=== PATIENT | female | born 1930 | race American Indian/Alaskan Native ===

== ENCOUNTER 2017-07-25 12:38 | Emergency (ER) | payer MEDICARE, OTHER ==
[2017-07-25 12:57] VITALS: BP 154/87
[2017-07-25] MEDS ORDERED: Sodium Chloride 0.9% 10 ML Syringe FLUSH PRN (13:41)
[2017-07-25 13:59] LABS: ANION GAP 13.4; CHLORIDE,CL 103 mmol/L (101-111); SODIUM,NA 138 mmol/L (135-145)
[2017-07-25] MEDS ORDERED: GI Cocktail Oral Solution 30 ML PO ONE (14:48)
--- NOTE | 2017-07-25 20:27 | EDM.PDOC ---
Scribed by Gaye Braga 07/25/17 1504 for Naomi Yeboah NP ED HPI GENERAL MEDICAL PROBLEM - General Chief Complaint: Chest Pain Stated Complaint: [id number] CHEST PAINS Time Seen by Provider: 07/25/17 13:35 Source of Information: Reports: Patient, RN, RN Notes Reviewed History Limitations: Reports: No Limitations - History of Present Illness INITIAL COMMENTS - FREE TEXT/NARRATIVE: Patient presents to ER with complaint of low blood sugar. She states she took glucose pill for elevated blood sugar, which gave her an upset stomach. Admits to chest pain and nausea. She denies any shortness of breath, vomiting, diarrhea , cough, fever or chills. She states the pain has decreased since arrival. Onset: Today Duration: Constant Location: Reports: Chest Quality: Reports: Ache Severity: Moderate Improves with: Reports: None Worsens with: Reports: None Associated Symptoms: Reports: No Other Symptoms Mid-Sternal Epigastric Pain Score (Numeric/FACES): 1 - Related Data Allergies Allergy/AdvReac Type Severity Reaction Status Date / Time atorvastatin calcium Allergy Swelling Verified 10/18/14 06:44 [From Lipitor] erythromycin lactobionate Allergy unknown Verified 10/18/14 06:44 [From Erythrocin] lisinopril Allergy Cough Verified 10/18/14 06:44 fluoroquinolones Allergy Swelling Uncoded 03/26/14 14:51 Home Meds: Home Meds Aspirin [Macey Chewable Aspirin] 81 mg PO DAILY 03/26/14 [History] Bumetanide [Bumex] 1 mg PO DAILY 03/26/14 [History] Fenofibric Acid (Choline) [Fenofibric Acid] 45 mg PO DAILY 03/26/14 [History] Ferrous Gluconate 325 mg PO DAILY 03/26/14 [History] Isosorbide Mononitrate [Isosorbide Mononitrate ER] 30 mg PO BID 03/26/14 [ History] Levothyroxine [Synthroid] 50 mcg PO DAILY 03/26/14 [History] Ranitidine HCl 150 mg PO BID PRN 03/26/14 [History] Sertraline HCl 50 mg PO DAILY 03/26/14 [History] amLODIPine [Norvasc] 5 mg PO DAILY 03/26/14 [History] Insulin Detemir [Levemir Flextouch] 10 units INJECT .EVENING 10/18/14 [History] Multivitamin [Multi-Vitamin Daily] 1 tab PO DAILY 10/18/14 [History] Social & Family History - Family History Family Medical History: Noncontributory - Tobacco Use Smoking Status *Q: Never Smoker Used Tobacco, but Quit: No Second Hand Smoke Exposure: No - Caffeine Use Caffeine Use: Reports: Soda, Tea - Alcohol Use Days Per Week of Alcohol Use: 0 - Recreational Drug Use Recreational Drug Use: No Drug Use in Last 12 Months: No - Living Situation & Occupation Living situation: Reports: with Family Occupation: Retired ED ROS GENERAL - Review of Systems Review Of Systems: ROS reveals no pertinent complaints other than HPI. ED EXAM, GENERAL - Physical Exam Exam: See Below Exam Limited By: No Limitations General Appearance: Alert, WD/WN, No Apparent Distress Eye Exam: Bilateral Eye: Normal Inspection Ears: Normal External Exam, Normal Canal, Hearing Grossly Normal, Normal TMs Nose: Normal Inspection, Normal Mucosa, No Blood Throat/Mouth: Normal Inspection, Normal Lips, Normal Teeth, Normal Gums, Normal Oropharynx, Normal Voice, No Airway Compromise Head: Atraumatic, Normocephalic Neck: Normal Inspection, Supple, Non-Tender, Full Range of Motion Respiratory/Chest: No Respiratory Distress, Lungs Clear, Normal Breath Sounds, No Accessory Muscle Use, Chest Non-Tender Cardiovascular: Normal Peripheral Pulses, Regular Rate, Rhythm, No Edema, No Gallop, No JVD, No Murmur, No Rub GI/Abdominal: Normal Bowel Sounds, Soft, Non-Tender, No Organomegaly, No Distention, No Abnormal Bruit, No Mass (Female) Exam: Deferred Rectal (Female) Exam: Deferred Back Exam: Normal Inspection, Full Range of Motion, NT Extremities: Normal Inspection, Normal Range of Motion, Non-Tender, Normal Capillary Refill, No Pedal Edema Neurological: Alert, Oriented, CN II-XII Intact, Normal Cognition, Normal Gait, Normal Reflexes, No Motor/Sensory Deficits Psychiatric: Normal Affect, Normal Mood Skin Exam: Warm, Dry, Intact, Normal Color, No Rash Lymphatic: No Adenopathy EKG INTERPRETATION EKG Date: 07/25/17 Time: 12:45 Rhythm: Other (sinus rhythm) Rate (Beats/Min): 77 EKG Interpretation Comments: Left axis deviation. LVH with secondary repolarization abnormality. Course - Vital Signs Last Recorded V/S: Last Vital Signs Temp 97.2 F 07/25/17 12:56 Pulse 78 07/25/17 12:56 Resp 22 H 07/25/17 12:56 BP 154/87 H 07/25/17 12:56 Pulse Ox 91 L 07/25/17 12:56 - Orders/Labs/Meds Orders: Active Orders 24 hr Category Date Time Status EKG Documentation Completion [RC] STAT Care 07/25/17 13:42 Active Peripheral IV Care [RC] . DIRECTED Care 07/25/17 13:42 Active Sodium Chloride 0.9% [Saline Flush] Med 07/25/17 13:41 Active 10 ml FLUSH ASDIRECTED PRN Peripheral IV Insertion Adult [OM.PC] Stat Oth 07/25/17 13:41 Ordered Medication Orders Sodium Chloride (Saline Flush) 10 ml FLUSH ASDIRECTED PRN PRN Reason: Keep Vein Open Last Admin: 07/25/17 13:49 Dose: 10 ml Labs: Laboratory Tests 07/25/17 07/25/17 Range/Units 12:52 12:52 WBC 11.7 H (5.0-10.0) 10^3/uL RBC 4.42 (4.2-5.4) 10^6/uL Hgb 13.7 (12.0-16.0) g/dL Hct 42.6 (37.0-47.0) % MCV 96.4 (80-100) fL MCH 31.0 (27.0-34.0) pg MCHC 32.2 L (33.0-35.0) g/dL Plt Count 226 (150-450) 10^3/uL Neut % (Auto) 79.6 H (42.2-75.2) % Lymph % (Auto) 14.4 L (20.5-50.1) % [place] % (Auto) 4.9 (2-8) % Eos % (Auto) 0.9 L (1.0-3.0) % Baso % (Auto) 0.2 (0.0-1.0) % Sodium 138 (135-145) mmol/L Potassium 4.4 (3.6-5.0) mmol/L Chloride 103 (101-111) mmol/L Carbon Dioxide 26.0 (21.0-31.0) mmol/L Anion Gap 13.4 BUN 16 (7-18) mg/dL Creatinine 0.9 (0.6-1.3) mg/dL Est Cr Clr Drug Dosing 39.63 mL/min Estimated GFR (MDRD) 59 BUN/Creatinine Ratio 17.77 Glucose 225 H (74-105) mg/dL Calcium 9.2 (8.4-10.2) mg/dl Total Bilirubin 0.7 (0.2-1.0) mg/dL AST 28 (10-42) IU/L ALT 17 (10-60) IU/L Alkaline Phosphatase 54 (42-121) IU/L Troponin I < 0.02 (0.00-0.02) ng/ml Total Protein 7.8 (6.7-8.2) g/dl Albumin 4.2 (3.2-5.5) g/dl Globulin 3.6 Albumin/Globulin Ratio 1.17 Meds: Medications Generic Name Dose Route Start Last Admin Trade Name Freq PRN Reason Stop Dose Admin Sodium Chloride 10 ml 07/25/17 13:41 07/25/17 13:49 Saline Flush FLUSH 10 ml ASDIRECTED PRN Administration Keep Vein Open Discontinued Medications Generic Name Dose Route Start Last Admin Trade Name Freq PRN Reason Stop Dose Admin Al Hydroxide/Mg Hydroxide 30 ml 07/25/17 14:48 07/25/17 14:58 Gi Cocktail PO 07/25/17 14:49 30 ml ONETIME ONE Administration Departure - Departure Time of Disposition: 15:02 Disposition: Home, Self-Care 01 Condition: Fair Clinical Impression: Acid reflux Qualifiers: Esophagitis presence: without esophagitis Qualified Code(s): K21.9 - Gastro- esophageal reflux disease without esophagitis Instructions: Nonspecific Chest Pain, Lbhk-[id number], Indigestion, Leir-rh-Nlpt, Heartburn, Abet-[id number] Forms: ED Department Discharge Additional Instructions: May use over the counter pepcid ac as directed for indigestion or heartburn as directed Follow up with your primary care facility Avoid spicy foods, caffeine, coffee, chocolate and other irritants. - My Orders Last 24 Hours: My Active Orders 07/25/17 13:41 Sodium Chloride 0.9% [Saline Flush] 10 ml FLUSH ASDIRECTED PRN Peripheral IV Insertion Adult [OM.PC] Stat 07/25/17 13:42 EKG Documentation Completion [RC] STAT Peripheral IV Care [RC] . DIRECTED - Assessment/Plan Last 24 Hours: My Active Orders 07/25/17 13:41 Sodium Chloride 0.9% [Saline Flush] 10 ml FLUSH ASDIRECTED PRN Peripheral IV Insertion Adult [OM.PC] Stat 07/25/17 13:42 EKG Documentation Completion [RC] STAT Peripheral IV Care [RC] . DIRECTED I have read and agree with the documentation that has been completed regarding this visit. By signing this record, I attest that the documentation was completed in my physical presence and is an accurate record of the encounter.
--- NOTE | 2017-07-27 13:13 | EKG ---
07/25/2017 - BASIA MCMANUS - FINDINGS: EKG per my reading shows sinus rhythm with LVH. [facility] /[id number]
== END 2017-07-25 15:19 | disposition home or self-care (01) ==
LOC: DL.ED 12:38
DX: K21.9 Gastro-esophageal reflux disease without esophagitis (principal); Z79.82 Long term (current) use of aspirin; Z79.899 Other long term (current) drug therapy; Z88.1 Allergy status to other antibiotic agents; Z88.8 Allergy status to other drugs, medicaments and biological substances
CPT/HCPCS: 36415; 80053; 84484; 85025; 93005; 93010; 99285; A9270; J7050; 99284

== ENCOUNTER 2019-06-17 14:20 | Emergency (ER) | payer MEDICARE, OTHER ==
[2019-06-17 14:08] VITALS: BP 146/69; PULSE 64
[2019-06-17 14:40] LABS: ANION GAP 13.6
[2019-06-17] MEDS ORDERED: Insulin Regular, Human 100 Units/ML 3 ML Vial IV ONE (14:57)
[2019-06-17] MEDS ORDERED: Insulin Regular, Human 100 Units/ML 3 ML Vial SUBCUT ONE ×2 (16:15→16:27)
--- NOTE | 2019-06-17 20:29 | EDM.PDOC ---
Scribed by Gaye Braga 06/17/19 1467 for Rupinder Palma NP ED HPI GENERAL MEDICAL PROBLEM - General Chief Complaint: General Stated Complaint: AMBULANCE Time Seen by Provider: 06/17/19 14:21 Source of Information: Reports: Patient, EMS, EMS Notes Reviewed, RN, RN Notes Reviewed History Limitations: Reports: No Limitations - History of Present Illness INITIAL COMMENTS - FREE TEXT/NARRATIVE: Patient presents to ER by [facility]. Patient does not know if her blood sugar is elevated. She is weak x 1 days. She has had decreased appetite. She has had no cough, fever, or urinary symptoms. No recent illness. She is on Levemir 22 units in the A.M. Her son gives her all her insulin and meds; they dont check her BS. Son was knowledgeable about her Levemir. NO cough cold or SOB. NO abdominal pain, polyuria, frequency or dysuria. Onset: Gradual Duration: Getting Worse Location: Reports: Generalized Quality: Reports: Ache Severity: Moderate Improves with: Reports: None Worsens with: Reports: None Associated Symptoms: Reports: No Other Symptoms - Related Data Allergies Allergy/AdvReac Type Severity Reaction Status Date / Time atorvastatin calcium Allergy Swelling Verified 06/17/19 14:38 [From Lipitor] erythromycin lactobionate Allergy unknown Verified 06/17/19 14:38 [From Erythrocin] lisinopril Allergy Cough Verified 06/17/19 14:38 metformin Allergy Itching Verified 06/17/19 14:38 fluoroquinolones Allergy Swelling Uncoded 06/08/19 13:52 Home Meds: Home Meds Aspirin [Macey Chewable Aspirin] 81 mg PO DAILY 03/26/14 [History] Bumetanide [Bumex] 1 mg PO DAILY 03/26/14 [History] Fenofibric Acid (Choline) [Fenofibric Acid] 45 mg PO DAILY 03/26/14 [History] Ferrous Gluconate 325 mg PO DAILY 03/26/14 [History] Isosorbide Mononitrate [Isosorbide Mononitrate ER] 15 mg PO BID 03/26/14 [ History] Levothyroxine [Synthroid] 0.075 mg PO DAILY 03/26/14 [History] Ranitidine HCl 150 mg PO BID PRN 03/26/14 [History] Sertraline HCl 50 mg PO DAILY 03/26/14 [History] amLODIPine [Norvasc] 5 mg PO DAILY 03/26/14 [History] Insulin Detemir [Levemir Flextouch] 22 units INJECT .MORNINGS 10/18/14 [History] Multivitamin [Multi-Vitamin Daily] 1 tab PO DAILY 10/18/14 [History] Gabapentin [Neurontin] 300 mg PO BID 05/12/18 [History] Ibuprofen 400 mg PO ATDISCHARGE PRN 05/12/18 [History] atorvaSTATin [Lipitor] 20 mg PO BEDTIME 05/12/18 [History] Donepezil HCl 10 mg PO DAILY 06/08/19 [History] Furosemide 10 mg PO BID 06/08/19 [History] hydroCHLOROthiazide [Hydrochlorothiazide] 12.5 mg PO DAILY 06/08/19 [History] Past Medical History HEENT History: Reports: Cataract, Glaucoma, Impaired Vision, Other (See Below) Cardiovascular History: Reports: High Cholesterol, Hypertension Respiratory History: Reports: None Gastrointestinal History: Reports: GERD, Other (See Below) Genitourinary History: Reports: Chronic Renal Insuffiency DIALYSIS RN History: Reports: Musculoskeletal History: Reports: Back Pain, Chronic, Osteoarthritis, Other ( See Below) Other Musculoskeletal History: right ankle surgery. Hip joint pain bilateral Neurological History: Reports: None Psychiatric History: Reports: Depression Endocrine/Metabolic History: Reports: Diabetes, Type II, Hypothyroidism, Obesity /BMI 30+ Hematologic History: Reports: None Immunologic History: Reports: None Oncologic (Cancer) History: Reports: None Dermatologic History: Reports: None - Infectious Disease History Infectious Disease History: Reports: None - Past Surgical History HEENT Surgical History: Reports: Cataract Surgery, Oral Surgery, Tonsillectomy GI Surgical History: Reports: Cholecystectomy, Colonoscopy, EGD Female Surgical History: Reports: Tubal Ligation Social & Family History - Family History Family Medical History: Noncontributory - Tobacco Use Smoking Status *Q: Never Smoker - Caffeine Use Caffeine Use: Reports: Coffee - Recreational Drug Use Recreational Drug Use: No - Living Situation & Occupation Living situation: Reports: with Family Occupation: Retired ED ROS GENERAL - Review of Systems Review Of Systems: Comprehensive ROS is negative, except as noted in HPI. ED EXAM, GENERAL - Physical Exam Exam: See Below Exam Limited By: No Limitations General Appearance: Alert, WD/WN, No Apparent Distress Eye Exam: Bilateral Eye: Normal Inspection Ears: Normal External Exam, Normal Canal, Hearing Grossly Normal, Normal TMs Nose: Normal Inspection, Normal Mucosa, No Blood Throat/Mouth: Normal Inspection, Normal Lips, Normal Teeth, Normal Gums, Normal Oropharynx, Normal Voice, No Airway Compromise Head: Atraumatic, Normocephalic Neck: Normal Inspection, Supple, Non-Tender, Full Range of Motion Respiratory/Chest: No Respiratory Distress, Lungs Clear, Normal Breath Sounds, No Accessory Muscle Use, Chest Non-Tender Cardiovascular: Normal Peripheral Pulses, Regular Rate, Rhythm, No Edema, No Gallop, No JVD, No Murmur, No Rub GI/Abdominal: Normal Bowel Sounds, Soft, Non-Tender, No Organomegaly, No Distention, No Abnormal Bruit, No Mass (Female) Exam: Deferred Rectal (Female) Exam: Deferred Back Exam: Normal Inspection, Full Range of Motion, NT Extremities: Normal Inspection, Normal Range of Motion, Non-Tender, Normal Capillary Refill, No Pedal Edema Neurological: Alert, Oriented, CN II-XII Intact, Normal Cognition, Normal Gait, Normal Reflexes, No Motor/Sensory Deficits Psychiatric: Normal Affect, Normal Mood Skin Exam: Warm, Dry, Intact, Normal Color, No Rash Course - Vital Signs Last Recorded V/S: Last Vital Signs Temp 36.1 C 06/17/19 14:07 Pulse 64 06/17/19 14:07 Resp 22 H 06/17/19 14:07 BP 146/69 H 06/17/19 14:07 Pulse Ox 95 06/17/19 14:07 - Orders/Labs/Meds Orders: Active Orders 24 hr Category Date Time Status Blood Glucose Check, Bedside [RC] ONETIME Care 06/17/19 15:43 Active Late Tray [DIET] Routine Diet 06/17/19 17:16 Active CULTURE BLOOD [BC] Stat Lab 06/17/19 14:08 Received Labs: Laboratory Tests 06/17/19 06/17/19 06/17/19 Range/Units 14:08 14:08 14:08 WBC 8.0 (5.0-10.0) 10^3/uL RBC 4.04 L (4.2-5.4) 10^6/uL Hgb 12.6 (12.0-16.0) g/dL Hct 38.3 (37.0-47.0) % MCV 94.8 (80-100) fL MCH 31.2 (27.0-34.0) pg MCHC 32.9 L (33.0-35.0) g/dL Plt Count 194 (150-450) 10^3/uL Neut % (Auto) 71.2 (42.2-75.2) % Lymph % (Auto) 18.6 L (20.5-50.1) % [place] % (Auto) 7.6 (2-8) % Eos % (Auto) 2.1 (1.0-3.0) % Baso % (Auto) 0.5 (0.0-1.0) % Sodium 135 (135-145) mmol/L Potassium 4.6 (3.6-5.0) mmol/L Chloride 99 L (101-111) mmol/L Carbon Dioxide 27.0 (21.0-31.0) mmol/L Anion Gap 13.6 BUN 26 H (7-18) mg/dL Creatinine 0.9 (0.6-1.3) mg/dL Est Cr Clr Drug Dosing 38.13 mL/min Estimated GFR (MDRD) 59 BUN/Creatinine Ratio 28.88 Glucose 422 H* (74-105) mg/dL POC Glucose (83-110) mg/dl Lactic Acid 2.0 (0.5-2.2) mmol/L Calcium 9.1 (8.4-10.2) mg/dl Total Bilirubin 0.5 (0.2-1.0) mg/dL AST 16 (10-42) IU/L ALT 16 (10-60) IU/L Alkaline Phosphatase 61 (42-121) IU/L Total Protein 7.0 (6.7-8.2) g/dl Albumin 3.9 (3.2-5.5) g/dl Globulin 3.1 Albumin/Globulin Ratio 1.26 Urine Color (YELLOW) Urine Appearance (CLEAR) Urine pH (5.0-9.0) Ur Specific [place] (1.005-1.030) Urine Protein (NEGATIVE) Urine Glucose (UA) (NEGATIVE) Urine Ketones (NEGATIVE) Urine Occult Blood (NEGATIVE) Urine Nitrite (NEGATIVE) Urine Bilirubin (NEGATIVE) Urine Urobilinogen (0.2-1.0) mg/dL Ur Leukocyte Esterase (NEGATIVE) 06/17/19 06/17/19 06/17/19 Range/Units 14:09 15:04 15:42 WBC (5.0-10.0) 10^3/uL RBC (4.2-5.4) 10^6/uL Hgb (12.0-16.0) g/dL Hct (37.0-47.0) % MCV (80-100) fL MCH (27.0-34.0) pg MCHC (33.0-35.0) g/dL Plt Count (150-450) 10^3/uL Neut % (Auto) (42.2-75.2) % Lymph % (Auto) (20.5-50.1) % [place] % (Auto) (2-8) % Eos % (Auto) (1.0-3.0) % Baso % (Auto) (0.0-1.0) % Sodium (135-145) mmol/L Potassium (3.6-5.0) mmol/L Chloride (101-111) mmol/L Carbon Dioxide (21.0-31.0) mmol/L Anion Gap BUN (7-18) mg/dL Creatinine (0.6-1.3) mg/dL Est Cr Clr Drug Dosing mL/min Estimated GFR (MDRD) BUN/Creatinine Ratio Glucose (74-105) mg/dL POC Glucose 375 H 301 H (83-110) mg/dl Lactic Acid (0.5-2.2) mmol/L Calcium (8.4-10.2) mg/dl Total Bilirubin (0.2-1.0) mg/dL AST (10-42) IU/L ALT (10-60) IU/L Alkaline Phosphatase (42-121) IU/L Total Protein (6.7-8.2) g/dl Albumin (3.2-5.5) g/dl Globulin Albumin/Globulin Ratio Urine Color Yellow (YELLOW) Urine Appearance Clear (CLEAR) Urine pH 5.5 (5.0-9.0) Ur Specific [place] 1.015 (1.005-1.030) Urine Protein Negative (NEGATIVE) Urine Glucose (UA) 500 H (NEGATIVE) Urine Ketones Negative (NEGATIVE) Urine Occult Blood Negative (NEGATIVE) Urine Nitrite Negative (NEGATIVE) Urine Bilirubin Negative (NEGATIVE) Urine Urobilinogen 0.2 (0.2-1.0) mg/dL Ur Leukocyte Esterase Negative (NEGATIVE) 06/17/19 Range/Units 16:25 WBC (5.0-10.0) 10^3/uL RBC (4.2-5.4) 10^6/uL Hgb (12.0-16.0) g/dL Hct (37.0-47.0) % MCV (80-100) fL MCH (27.0-34.0) pg MCHC (33.0-35.0) g/dL Plt Count (150-450) 10^3/uL Neut % (Auto) (42.2-75.2) % Lymph % (Auto) (20.5-50.1) % [place] % (Auto) (2-8) % Eos % (Auto) (1.0-3.0) % Baso % (Auto) (0.0-1.0) % Sodium (135-145) mmol/L Potassium (3.6-5.0) mmol/L Chloride (101-111) mmol/L Carbon Dioxide (21.0-31.0) mmol/L Anion Gap BUN (7-18) mg/dL Creatinine (0.6-1.3) mg/dL Est Cr Clr Drug Dosing mL/min Estimated GFR (MDRD) BUN/Creatinine Ratio Glucose (74-105) mg/dL POC Glucose 233 H (83-110) mg/dl Lactic Acid (0.5-2.2) mmol/L Calcium (8.4-10.2) mg/dl Total Bilirubin (0.2-1.0) mg/dL AST (10-42) IU/L ALT (10-60) IU/L Alkaline Phosphatase (42-121) IU/L Total Protein (6.7-8.2) g/dl Albumin (3.2-5.5) g/dl Globulin Albumin/Globulin Ratio Urine Color (YELLOW) Urine Appearance (CLEAR) Urine pH (5.0-9.0) Ur Specific [place] (1.005-1.030) Urine Protein (NEGATIVE) Urine Glucose (UA) (NEGATIVE) Urine Ketones (NEGATIVE) Urine Occult Blood (NEGATIVE) Urine Nitrite (NEGATIVE) Urine Bilirubin (NEGATIVE) Urine Urobilinogen (0.2-1.0) mg/dL Ur Leukocyte Esterase (NEGATIVE) Meds: Medications Discontinued Medications Generic Name Dose Route Start Last Admin Trade Name [place] PRN Reason Stop Dose Admin Insulin Human Regular 5 unit 06/17/19 14:57 06/17/19 15:11 Humulin R IV 06/17/19 14:58 5 unit ONETIME ONE Administration Insulin Human Regular 4 unit 06/17/19 16:15 06/17/19 16:29 Humulin R SUBCUT 06/17/19 16:16 Not Given ONETIME ONE Insulin Human Regular 2 unit 06/17/19 16:27 06/17/19 16:29 Humulin R SUBCUT 06/17/19 16:28 2 unit ONETIME ONE Administration - Re-Assessments/Exams Free Text/Narrative Re-Assessment/Exam: 06/17/19 20:23 No signs of infection on labs, exam normal. Had not identified increased carb intake Most likely she is just requiring more insulin and with them not taking her BS; may not have noted her BS rising. Upon admit her BS was 422 given 5 units IV reg insulin. After 2 hours her BS down to 233; given 2 units sq. Will increase her Levemir to 26 units and to follow up with her PCP next week. Son understood and so did the patient. Encouraged them to check BS bid and report to the PCP. Also discussed sx of low blood sugar. Departure - Departure Time of Disposition: 16:17 Disposition: Home, Self-Care 01 Condition: Good Clinical Impression: Hyperglycemia, IDDM (insulin dependent diabetes mellitus) - Discharge Information Instructions: Type 2 Diabetes Mellitus, Diagnosis, Adult, Insulin Treatment for Diabetes Mellitus, Tips for Eating Away From Home If You Have Diabetes, Type 2 Diabetes Mellitus, Self Care, Adult, Blood Glucose Monitoring, Adult Referrals: PCP,None [Primary Care Provider] - Forms: ED Department Discharge Additional Instructions: Would be monitoring her blood sugar twice a day; keep a log for your primary care. Make appointment as soon as possible. we gave you some insulin in the ER as your blood sugar was increased to 422. We will need to increase your Levemir to 26 units every am. If any issues with low blood sugars < 100; then hold Levemir and call you PCP or go to the ER. We did not find any reasons for your high blood sugar. You blood work is good and no infection in urine. Sepsis Event Note - Evaluation Sepsis Screening Result: No Definite Risk - Focused Exam Vital Signs: Vital Signs Temp Pulse Resp BP Pulse Ox 06/17/19 14:07 36.1 C 64 22 H 146/69 H 95 Date Exam was Performed: 06/17/19 Time Exam was Performed: 20:21 - My Orders Last 24 Hours: My Active Orders 06/17/19 14:08 CULTURE BLOOD [BC] Stat 06/17/19 15:43 Blood Glucose Check, Bedside [RC] ONETIME 06/17/19 17:16 Late Tray [DIET] Routine - Assessment/Plan Last 24 Hours: My Active Orders 06/17/19 14:08 CULTURE BLOOD [BC] Stat 06/17/19 15:43 Blood Glucose Check, Bedside [RC] ONETIME 06/17/19 17:16 Late Tray [DIET] Routine I have read and agree with the documentation that has been completed regarding this visit. By signing this record, I attest that the documentation was completed in my physical presence and is an accurate record of the encounter.
== END 2019-06-17 17:56 | disposition home or self-care (01) ==
LOC: DL.ED 14:20
DX: E11.65 Type 2 diabetes mellitus with hyperglycemia (principal); E11.22 Type 2 diabetes mellitus with diabetic chronic kidney disease; I12.9 Hypertensive chronic kidney disease with stage 1 through stage 4 chronic kidney disease, or unspecified chronic kidney disease; N18.9 Chronic kidney disease, unspecified; E78.00 Pure hypercholesterolemia, unspecified; E03.9 Hypothyroidism, unspecified; Z79.4 Long term (current) use of insulin; Z79.82 Long term (current) use of aspirin; Z79.890 Hormone replacement therapy; Z79.899 Other long term (current) drug therapy; Z88.1 Allergy status to other antibiotic agents; Z88.8 Allergy status to other drugs, medicaments and biological substances
CPT/HCPCS: 36415; 80053; 81003; 82962; 83605; 85025; 87040; 99285; J1815

== ENCOUNTER 2019-07-04 12:32 | Emergency (ER) | payer MEDICARE, OTHER ==
[2019-07-04 12:44] VITALS: BP 119/41; PULSE 73
--- NOTE | 2019-07-04 14:49 | EDM.PDOC ---
Scribed by Gaye Braga 07/04/19 [id number] for Morgan Gallagher PA ED HPI GENERAL MEDICAL PROBLEM - General Chief Complaint: General Stated Complaint: DIABETIC COMPLAINT Time Seen by Provider: 07/04/19 12:47 Source of Information: Reports: Patient, EMS, EMS Notes Reviewed, RN, RN Notes Reviewed History Limitations: Reports: No Limitations - History of Present Illness INITIAL COMMENTS - FREE TEXT/NARRATIVE: Patient is an 88-year-old who presents to ER by [facility] who woke up feeling well. She then got a headache and diffuse abdominal pain. She has taken no medications for her pain. She did take her regular medications. She had a clinic visit weeks ago. She has had no vomiting. Patient had a normal bowel movement movement with no urinary complaints. Onset: Today Duration: Getting Worse Location: Reports: Head, Abdomen Quality: Reports: Ache Severity: Moderate Improves with: Reports: None Worsens with: Reports: None Associated Symptoms: Reports: No Other Symptoms - Related Data Allergies Allergy/AdvReac Type Severity Reaction Status Date / Time atorvastatin calcium Allergy Swelling Verified 06/17/19 14:38 [From Lipitor] erythromycin lactobionate Allergy unknown Verified 06/17/19 14:38 [From Erythrocin] lisinopril Allergy Cough Verified 06/17/19 14:38 metformin Allergy Itching Verified 06/17/19 14:38 fluoroquinolones Allergy Swelling Uncoded 06/08/19 13:52 Home Meds: Home Meds Aspirin [Macey Chewable Aspirin] 81 mg PO DAILY 03/26/14 [History] Bumetanide [Bumex] 1 mg PO DAILY 03/26/14 [History] Fenofibric Acid (Choline) [Fenofibric Acid] 45 mg PO DAILY 03/26/14 [History] Ferrous Gluconate 325 mg PO DAILY 03/26/14 [History] Isosorbide Mononitrate [Isosorbide Mononitrate ER] 15 mg PO BID 03/26/14 [ History] Levothyroxine [Synthroid] 0.075 mg PO DAILY 03/26/14 [History] Ranitidine HCl 150 mg PO BID PRN 03/26/14 [History] Sertraline HCl 50 mg PO DAILY 03/26/14 [History] amLODIPine [Norvasc] 5 mg PO DAILY 03/26/14 [History] Insulin Detemir [Levemir Flextouch] 22 units INJECT .MORNINGS 10/18/14 [History] Multivitamin [Multi-Vitamin Daily] 1 tab PO DAILY 10/18/14 [History] Gabapentin [Neurontin] 300 mg PO BID 05/12/18 [History] Ibuprofen 400 mg PO ATDISCHARGE PRN 05/12/18 [History] atorvaSTATin [Lipitor] 20 mg PO BEDTIME 05/12/18 [History] Donepezil HCl 10 mg PO DAILY 06/08/19 [History] Furosemide 10 mg PO BID 06/08/19 [History] hydroCHLOROthiazide [Hydrochlorothiazide] 12.5 mg PO DAILY 06/08/19 [History] Past Medical History HEENT History: Reports: Cataract, Glaucoma, Impaired Vision, Other (See Below) Cardiovascular History: Reports: High Cholesterol, Hypertension Respiratory History: Reports: None Gastrointestinal History: Reports: GERD, Other (See Below) Genitourinary History: Reports: Chronic Renal Insuffiency 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 Hip joint pain bilateral Neurological History: Reports: None Psychiatric History: Reports: Depression Endocrine/Metabolic History: Reports: Diabetes, Type II, Hypothyroidism, Obesity /BMI 30+ Hematologic History: Reports: None Immunologic History: Reports: None Oncologic (Cancer) History: Reports: None Dermatologic History: Reports: None - Infectious Disease History Infectious Disease History: Reports: None - Past Surgical History HEENT Surgical History: Reports: Cataract Surgery, Oral Surgery, Tonsillectomy GI Surgical History: Reports: Cholecystectomy, Colonoscopy, EGD Female Surgical History: Reports: Tubal Ligation Social & Family History - Family History Family Medical History: Noncontributory - Caffeine Use Caffeine Use: Reports: Coffee - Living Situation & Occupation Living situation: Reports: with Family Occupation: Retired ED ROS GENERAL - Review of Systems Review Of Systems: Comprehensive ROS is negative, except as noted in HPI. ED EXAM, GENERAL - Physical Exam Exam: See Below Exam Limited By: No Limitations General Appearance: Obese Eye Exam: Bilateral Eye: EOMI, Normal Inspection, PERRL Ears: Normal External Exam, Normal Canal, Hearing Grossly Normal, Normal TMs Nose: Normal Inspection, Normal Mucosa, No Blood Throat/Mouth: Normal Inspection, Normal Lips, Normal Teeth, Normal Gums, Normal Oropharynx, Normal Voice, No Airway Compromise Head: Atraumatic, Normocephalic Neck: Normal Inspection, Supple, Non-Tender, Full Range of Motion Respiratory/Chest: No Respiratory Distress, Lungs Clear, Normal Breath Sounds, No Accessory Muscle Use, Chest Non-Tender Cardiovascular: Normal Peripheral Pulses, Regular Rate, Rhythm, No Edema, No Gallop, No JVD, No Murmur, No Rub GI/Abdominal: Other (morbid obesity. Right sided abdominal pain) (Female) Exam: Deferred Rectal (Female) Exam: Deferred Back Exam: Normal Inspection, Full Range of Motion, NT Extremities: Normal Inspection, Normal Range of Motion, Non-Tender, Normal Capillary Refill, No Pedal Edema Neurological: Alert, Oriented, CN II-XII Intact, Normal Cognition, Normal Gait, Normal Reflexes, No Motor/Sensory Deficits Psychiatric: Normal Affect, Normal Mood Skin Exam: Warm, Dry, Intact, Normal Color, No Rash Lymphatic: No Adenopathy Course - Vital Signs Last Recorded V/S: Last Vital Signs Temp 36.1 C 07/04/19 12:42 Pulse 73 07/04/19 12:42 Resp 20 07/04/19 12:42 BP 119/41 L 07/04/19 12:42 Pulse Ox 88 L 07/04/19 12:42 - Orders/Labs/Meds Labs: Laboratory Tests 07/04/19 07/04/19 07/04/19 Range/Units 13:32 13:32 13:32 WBC 8.5 (5.0-10.0) 10^3/uL RBC 3.97 L (4.2-5.4) 10^6/uL Hgb 12.2 (12.0-16.0) g/dL Hct 37.5 (37.0-47.0) % MCV 94.5 (80-100) fL MCH 30.7 (27.0-34.0) pg MCHC 32.5 L (33.0-35.0) g/dL Plt Count 192 (150-450) 10^3/uL Neut % (Auto) 70.2 (42.2-75.2) % Lymph % (Auto) 19.4 L (20.5-50.1) % [place] % (Auto) 8.3 H (2-8) % Eos % (Auto) 1.5 (1.0-3.0) % Baso % (Auto) 0.6 (0.0-1.0) % Sodium (135-145) mmol/L Potassium (3.6-5.0) mmol/L Chloride (101-111) mmol/L Carbon Dioxide (21.0-31.0) mmol/L Anion Gap BUN (7-18) mg/dL Creatinine (0.6-1.3) mg/dL Est Cr Clr Drug Dosing mL/min Estimated GFR (MDRD) BUN/Creatinine Ratio Glucose (74-105) mg/dL Calcium (8.4-10.2) mg/dl Magnesium 1.6 L (1.8-2.5) mg/dL Total Bilirubin (0.2-1.0) mg/dL AST (10-42) IU/L ALT (10-60) IU/L Alkaline Phosphatase (42-121) IU/L Ammonia 23 (11-35) umol/L Total Protein (6.7-8.2) g/dl Albumin (3.2-5.5) g/dl Globulin Albumin/Globulin Ratio Amylase 37 (28-100) U/L Lipase 29 (22-51) U/L Urine Color (YELLOW) Urine Appearance (CLEAR) Urine pH (5.0-9.0) Ur Specific [place] (1.005-1.030) Urine Protein (NEGATIVE) Urine Glucose (UA) (NEGATIVE) Urine Ketones (NEGATIVE) Urine Occult Blood (NEGATIVE) Urine Nitrite (NEGATIVE) Urine Bilirubin (NEGATIVE) Urine Urobilinogen (0.2-1.0) mg/dL Ur Leukocyte Esterase (NEGATIVE) 07/04/19 07/04/19 Range/Units 13:32 13:46 WBC (5.0-10.0) 10^3/uL RBC (4.2-5.4) 10^6/uL Hgb (12.0-16.0) g/dL Hct (37.0-47.0) % MCV (80-100) fL MCH (27.0-34.0) pg MCHC (33.0-35.0) g/dL Plt Count (150-450) 10^3/uL Neut % (Auto) (42.2-75.2) % Lymph % (Auto) (20.5-50.1) % [place] % (Auto) (2-8) % Eos % (Auto) (1.0-3.0) % Baso % (Auto) (0.0-1.0) % Sodium 135 (135-145) mmol/L Potassium 4.0 (3.6-5.0) mmol/L Chloride 99 L (101-111) mmol/L Carbon Dioxide 24.0 (21.0-31.0) mmol/L Anion Gap 16.0 BUN 28 H (7-18) mg/dL Creatinine 1.1 (0.6-1.3) mg/dL Est Cr Clr Drug Dosing 27.42 mL/min Estimated GFR (MDRD) 47 BUN/Creatinine Ratio 25.45 Glucose 265 H (74-105) mg/dL Calcium 8.6 (8.4-10.2) mg/dl Magnesium (1.8-2.5) mg/dL Total Bilirubin 0.6 (0.2-1.0) mg/dL AST 19 (10-42) IU/L ALT 16 (10-60) IU/L Alkaline Phosphatase 54 (42-121) IU/L Ammonia (11-35) umol/L Total Protein 6.9 (6.7-8.2) g/dl Albumin 3.9 (3.2-5.5) g/dl Globulin 3.0 Albumin/Globulin Ratio 1.30 Amylase (28-100) U/L Lipase (22-51) U/L Urine Color Yellow (YELLOW) Urine Appearance Clear (CLEAR) Urine pH 5.0 (5.0-9.0) Ur Specific [place] 1.015 (1.005-1.030) Urine Protein Negative (NEGATIVE) Urine Glucose (UA) Negative (NEGATIVE) Urine Ketones Negative (NEGATIVE) Urine Occult Blood Negative (NEGATIVE) Urine Nitrite Negative (NEGATIVE) Urine Bilirubin Negative (NEGATIVE) Urine Urobilinogen 0.2 (0.2-1.0) mg/dL Ur Leukocyte Esterase Negative (NEGATIVE) Departure - Departure Time of Disposition: 14:45 Disposition: Home, Self-Care 01 Condition: Fair Clinical Impression: Gastroenteritis - Discharge Information *PRESCRIPTION DRUG MONITORING PROGRAM REVIEWED*: Not Applicable *COPY OF PRESCRIPTION DRUG MONITORING REPORT IN PATIENT SWETHA: Not Applicable Instructions: Viral Gastroenteritis, Adult, [id number] Forms: ED Department Discharge Care Plan Goals: The patient was advised of the examination and lab results during the visit. The patient was encouraged to stick to a BRAT diet (Bananas, Rice, Applesauce and [place]) for the next 24-48 hours with small frequent sips of fluid. If the patient has any additional symptoms or concerns, the patient should either return to the emergency department or visit her primary care facility. Sepsis Event Note - Evaluation Sepsis Screening Result: No Definite Risk - Focused Exam Vital Signs: Vital Signs Temp Pulse Resp BP Pulse Ox 07/04/19 12:42 36.1 C 73 20 119/41 L 88 L Date Exam was Performed: 07/04/19 Time Exam was Performed: 14:45 I have read and agree with the documentation that has been completed regarding this visit. By signing this record, I attest that the documentation was completed in my physical presence and is an accurate record of the encounter.
== END 2019-07-04 14:54 | disposition home or self-care (01) ==
LOC: DL.ED 12:32
DX: K52.9 Noninfective gastroenteritis and colitis, unspecified (principal); E11.9 Type 2 diabetes mellitus without complications; E03.9 Hypothyroidism, unspecified; E66.9 Obesity, unspecified; F32.9 Major depressive disorder, single episode, unspecified; Z88.1 Allergy status to other antibiotic agents; Z79.82 Long term (current) use of aspirin; Z79.4 Long term (current) use of insulin; Z88.8 Allergy status to other drugs, medicaments and biological substances; Z68.36 Body mass index [BMI] 36.0-36.9, adult; Z79.899 Other long term (current) drug therapy
CPT/HCPCS: 36415; 80053; 81003; 82140; 82150; 83690; 83735; 85025; 87804; 99284